=== PATIENT | female | born 1995 | race Two or more races ===

== ENCOUNTER 2023-07-07 07:49 | Inpatient (IN) | payer OTHER ==
[2023-07-07 08:35] VITALS: BMI 28.5
[2023-07-07] MEDS ORDERED: ELECTROLYTE-148 SOLN 1,000 ML IV SCH (08:45)
[2023-07-07 09:13] LABS: INR 0.87 (0.83-1.09); PROTHROMBIN TIME (PATIENT) 10.1 SEC (9.7-13.0)
[2023-07-07 09:16] LABS: ACTIVATED PTT 24.8 SECONDS (25.2-36.5)
[2023-07-07 09:18] LABS: BASO % 0.2 % (0-2.0); EOS % 0.2 % (0-4.5); HEMATOCRIT 43.7 % (32.4-45.2); LYMPH % 16.5 % (8-40); MCH 28.9 pg (25.7-33.7); MCHC 34.3 g/dl (32.0-36.0); MEAN CELL VOLUME 84.3 fl (80-96); MEAN PLT VOLUME 7.7 fl (7.5-11.1); MONO % 4.1 % (3.8-10.2); PLATELET COUNT 263 10^3/uL (134-434); RBC 5.19 M/mm3 (3.60-5.2); RDW 14.2 % (11.6-15.6); WHITE BLOOD COUNT 15.4 K/mm3 (4.0-10.0)
[2023-07-07 09:26] LABS: POTASSIUM 3.5 mmol/L (3.5-5.1)
[2023-07-07 09:27] LABS: CALCIUM 8.7 mg/dL (8.5-10.1)
[2023-07-07 09:28] LABS: BLOOD UREA NITROGEN 11.2 mg/dL (7-18)
[2023-07-07 09:31] LABS: CREATININE 0.7 mg/dL (0.55-1.3)
[2023-07-07] MEDS ORDERED: AMPICILLIN - 2 GM in SODIUM CHLORIDE 100 ML IVPB ONE (09:45)
[2023-07-07] MEDS ORDERED: NALOXONE HCL 0.4 MG/ML VIAL IVPUSH PRN (09:51)
[2023-07-07] MEDS ORDERED: FENTANYL/BUPIVACAINE/NS/PF - PCEA - 50 ML DISP.SYRIN EP ONE ×2 (09:55→14:30)
[2023-07-07] MEDS ORDERED: BUPIVACAINE HCL/PF 0.25% (2.5MG/ML) 10 ML VIAL ONE (09:58)
[2023-07-07] MEDS ORDERED: LIDOCAINE HCL/EPINEPHRINE/PF 10 ML VIAL ONE ×2 (09:58→14:42)
[2023-07-07] MEDS ORDERED: FENTANYL/BUPIVACAINE/NS/PF - PCEA - 50 ML DISP.SYRIN EP SCH (10:00)
[2023-07-07] MEDS ORDERED: AMPICILLIN SODIUM 1 GM VIAL ONE (11:54)
[2023-07-07] MEDS: AMPICILLIN - 1 GM in SODIUM CHLORIDE 100 ML IVPB SCH ×2 (12:00→17:34)
[2023-07-07] MEDS ORDERED: OXYTOCIN 30 UNITS in 0.9% NS 30 UNIT/500 ML INFUS.BAG IVPB SCH (12:15)
[2023-07-07] MEDS ORDERED: OXYTOCIN 20 UNITS in 0.9% NS 20 UNIT/1,000 ML INFUS.BAG IV ONE ×2 (12:16→16:12)
[2023-07-07] MEDS ORDERED: AMPICILLIN - 1 GM in SODIUM CHLORIDE 100 ML IVPB SCH (14:00)
[2023-07-07] MEDS ORDERED: CITRIC ACID/SODIUM CITRATE 30 ML UNIT-DOSE CUP PO ONE (14:34)
[2023-07-07] MEDS ORDERED: LIGASURE IMPACT TP ONE (14:46)
[2023-07-07] MEDS ORDERED: SODIUM CHLORIDE 0.9% P/F 10 ML VIAL IJ ONE (14:50)
[2023-07-07] MEDS ORDERED: ceFAZolin SODIUM 1 GM VIAL ONE (14:50)
[2023-07-07] MEDS ORDERED: FENTANYL CITRATE/PF 50 MCG/ML VIAL ONE (14:59)
[2023-07-07] MEDS ORDERED: KETAMINE HCL 200 MG/20 ML VIAL ONE (15:00)
[2023-07-07] MEDS ORDERED: OXYTOCIN 10 UNITS/ML VIAL ONE ×2 (15:04→15:34)
[2023-07-07] MEDS ORDERED: morphine SULFATE/PF 1 MG/2 ML (2cc Syringe - QUVA) ONE (15:06)
[2023-07-07] MEDS ORDERED: MIDAZOLAM HCL 2 MG/2 ML SINGLE DOSE VIAL ONE (15:12)
[2023-07-07] MEDS ORDERED: METHYLERGONOVINE MALEATE 0.2 MG/1 ML AMP IM PRN (15:39)
[2023-07-07] MEDS ORDERED: ONDANSETRON 4 MG/2 ML VIAL ONE (15:51)
[2023-07-07] MEDS ORDERED: KETOROLAC TROMETHAMINE 30 MG/1 ML VIAL ONE (15:51)
[2023-07-07] MEDS: OXYTOCIN 20 UNITS in 0.9% NS 20 UNIT/1,000 ML INFUS.BAG IV SCH (16:00)
[2023-07-07] MEDS ORDERED: ACETAMINOPHEN 325 MG TABLET (FP) PO PRN (16:04)
[2023-07-07] MEDS ORDERED: ONDANSETRON 4 MG/2 ML VIAL IVPUSH PRN (16:04)
[2023-07-07] MEDS ORDERED: IBUPROFEN 600 MG TABLET (FP) PO PRN (16:04)
[2023-07-07] MEDS ORDERED: morphine SULFATE/PF 1 MG/2 ML (2cc Syringe - QUVA) EP ONE (16:04)
[2023-07-07] MEDS ORDERED: ACETAMINOPHEN INJECTION 100 ML IVPB ONE (16:26)
[2023-07-07] MEDS: ACETAMINOPHEN 1000 MG/100 ML BAG IVPB PRN ×2 (16:30→22:26)
[2023-07-07 17:58] LABS: CORD HCO3 26.5 mmHg (20-29); CORD PCO2 65.7 mmHg (30-78); CORD pH 7.223 (7.14-7.44)
[2023-07-07 18:03] LABS: CORD HCO3 26.4 mmHg (20-29); CORD PCO2 67.6 mmHg (30-78); CORD pH 7.209 (7.14-7.44)
[2023-07-07] MEDS: SIMETHICONE 80 MG TAB.CHEW (FP) PO PRN (19:42)
[2023-07-07] MEDS: IBUPROFEN 600 MG TABLET (FP) PO PRN (19:43)
[2023-07-07] MEDS: CEFAZOLIN SODIUM 2 GM in DEXTROSE 5%-WATER 100 ML IVPB SCH (22:46)
[2023-07-08] MEDS: OXYTOCIN 20 UNITS in 0.9% NS 20 UNIT/1,000 ML INFUS.BAG IV SCH (00:03)
[2023-07-08] MEDS ORDERED: oxyCODONE HCL 5 MG TABLET PO PRN (03:39)
[2023-07-08] MEDS: SIMETHICONE 80 MG TAB.CHEW (FP) PO PRN ×3 (05:40→19:27)
[2023-07-08] MEDS: ACETAMINOPHEN 1000 MG/100 ML BAG IVPB PRN (05:40)
[2023-07-08] MEDS: CEFAZOLIN SODIUM 2 GM in DEXTROSE 5%-WATER 100 ML IVPB SCH ×3 (06:31→22:29)
[2023-07-08] MEDS: IBUPROFEN 600 MG TABLET (FP) PO PRN ×3 (08:19→19:27)
[2023-07-08 09:23] LABS: BASO % 0.4 % (0-2.0); EOS % 0.1 % (0-4.5); HEMATOCRIT 30.5 % (32.4-45.2); MCH 28.1 pg (25.7-33.7); MCHC 32.9 g/dl (32.0-36.0); MEAN CELL VOLUME 85.5 fl (80-96); MEAN PLT VOLUME 7.2 fl (7.5-11.1); MONO % 5.7 % (3.8-10.2); NEUT % 76.8 % (42.8-82.8); PLATELET COUNT 182 10^3/uL (134-434); RBC 3.57 M/mm3 (3.60-5.2); RDW 14.2 % (11.6-15.6); WHITE BLOOD COUNT 12.3 K/mm3 (4.0-10.0)
[2023-07-08] MEDS: ENOXAPARIN NA (PORCINE) 40 MG/0.4 ML DISP.SYRIN SQ SCH (11:00)
[2023-07-08] MEDS ORDERED: BISACODYL 10 MG SUPP.RECT RC PRN (15:39)
[2023-07-08] MEDS: ACETAMINOPHEN 325 MG TABLET (FP) PO PRN (22:35)
[2023-07-09] MEDS: oxyCODONE HCL 5 MG TABLET PO PRN ×2 (07:59→16:45)
[2023-07-09] MEDS: SIMETHICONE 80 MG TAB.CHEW (FP) PO PRN ×3 (07:59→21:39)
[2023-07-09] MEDS: ENOXAPARIN NA (PORCINE) 40 MG/0.4 ML DISP.SYRIN SQ SCH (10:43)
[2023-07-09] MEDS: CEFAZOLIN SODIUM 2 GM in DEXTROSE 5%-WATER 100 ML IVPB ONE ×2 (11:09→11:49)
[2023-07-09] MEDS: CEFAZOLIN SODIUM 2 GM in DEXTROSE 5%-WATER 100 ML IVPB SCH (11:49)
[2023-07-09] MEDS: ACETAMINOPHEN 325 MG TABLET (FP) PO PRN (18:16)
[2023-07-09] MEDS: IBUPROFEN 600 MG TABLET (FP) PO PRN (21:39)
[2023-07-09 22:53] VITALS: BP 121/73; RESP 18
[2023-07-10] MEDS: SIMETHICONE 80 MG TAB.CHEW (FP) PO PRN (07:17)
[2023-07-10] MEDS: IBUPROFEN 600 MG TABLET (FP) PO PRN ×2 (07:18→13:50)
[2023-07-10 08:00] LABS: BASO % 0.4 % (0-2.0); EOS % 2.3 % (0-4.5); HEMATOCRIT 33.2 % (32.4-45.2); HEMOGLOBIN 10.9 GM/dL (10.7-15.3); LYMPH % 31.9 % (8-40); MCH 28.1 pg (25.7-33.7); MCHC 32.8 g/dl (32.0-36.0); MEAN CELL VOLUME 85.6 fl (80-96); MEAN PLT VOLUME 6.9 fl (7.5-11.1); MONO % 5.7 % (3.8-10.2); NEUT % 59.7 % (42.8-82.8); PLATELET COUNT 253 10^3/uL (134-434); RBC 3.87 M/mm3 (3.60-5.2); RDW 13.9 % (11.6-15.6); WHITE BLOOD COUNT 7.3 K/mm3 (4.0-10.0)
[2023-07-10] MEDS: ENOXAPARIN NA (PORCINE) 40 MG/0.4 ML DISP.SYRIN SQ SCH (09:19)
[2023-07-10 10:58] VITALS: PULSE 72; TEMP 97.9
== END 2023-07-10 15:00 | disposition home or self-care (01) | DRG 540 ==
LOC: JLDR 07:49 → J3W 17:35
PROVIDERS: ADMIT Obstetrics & Gynecology; ATTEND Student in an Organized Health Care Education/Training Program
PROC: 10D00Z1 Extraction of Products of Conception, Low, Open Approach (ICD-10-PCS; principal; 2023-07-07)
PROC: 3E0334Z Introduction of Serum, Toxoid and Vaccine into Peripheral Vein, Percutaneous Approach (ICD-10-PCS; 2023-07-07)
PROC: 0UB70ZZ Excision of Bilateral Fallopian Tubes, Open Approach (ICD-10-PCS; 2023-07-07)
DX: O62.0 Primary inadequate contractions (principal); O48.0 Post-term pregnancy; Z3A.40 40 weeks gestation of pregnancy; O36.8330 Maternal care for abnormalities of the fetal heart rate or rhythm, third trimester, not applicable or unspecified; O99.824 Streptococcus B carrier state complicating childbirth; O36.0930 Maternal care for other rhesus isoimmunization, third trimester, not applicable or unspecified; Z30.2 Encounter for sterilization; Z37.0 Single live birth
CPT/HCPCS: 36415; 36600; 59025; 80048; 82803; 85025; 85461; 85610; 85730; 86780; 86850; 86900; 86901; 88305-TC; 88307-TC; 96372; J2790